=== PATIENT | male | born 1985 | race American Indian/Alaskan Native ===

== ENCOUNTER 2017-04-23 21:51 | Emergency (ER) | payer OTHER ==
[2017-04-23 21:55] VITALS: BP 126/71; PULSE 70; RESP 16; TEMP 97; O2SAT 95
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
--- NOTE | 2017-04-24 10:55 | RAD ---
PROCEDURE: Left wrist dated 04/23/2017 HISTORY: injury COMPARISON: None. FINDINGS: BONES: Normal. No fracture. JOINTS: Normal. No dislocation. SOFT TISSUES: Several tiny radiopaque densities seen within the ventral soft tissues at the level of the radiocarpal articulation which could represent vascular calcifications OTHER FINDINGS: None. IMPRESSION: No evidence of acute displaced fracture nor dislocation. If symptoms persist or occult fracture suspected clinically recommend repeat radiographs 5-10 days as most fractures should become radiographically evident in this timeframe. Alternatively, consider followup MRI
== END 2017-04-23 23:09 | disposition home or self-care (01) ==
LOC: MERGE 21:51 → H.ER 21:51
DX: S60.222A Contusion of left hand, initial encounter (principal); V43.62XA Car passenger injured in collision with other type car in traffic accident, initial encounter; Y92.410 Unspecified street and highway as the place of occurrence of the external cause